=== PATIENT | female | born 1935 | race Asian ===

== ENCOUNTER 2018-03-12 21:52 | Emergency (ER) | payer BC, MEDICARE, OTHER ==
[2018-03-12] MEDS ORDERED: Adacel (T-DAP) 0.5 ML SYRINGE ONE (22:30)
== END 2018-03-12 22:53 | disposition home or self-care (01) ==
LOC: ERS 21:52
DX: S61.451A Open bite of right hand, initial encounter (principal); W54.0XXA Bitten by dog, initial encounter
CPT/HCPCS: 90471; 90715